=== PATIENT | male | born 1960 | race African-American/Black ===

== ENCOUNTER 2023-05-19 22:51 | Inpatient (IN) | payer OTHER ==
[2023-05-19 23:26] VITALS: BMI 21.1
[2023-05-19] MEDS ORDERED: BENZONATATE 200 MG CAPSULE PO PRN (23:45)
[2023-05-19] MEDS ORDERED: ONDANSETRON *ODT* 4 MG TABLET SL PRN (23:45)
[2023-05-19] MEDS ORDERED: IBUPROFEN 600 MG TABLET (FP) PO PRN (23:45)
[2023-05-19] MEDS ORDERED: NICOTINE POLACRILEX 4 MG GUM BUC PRN (23:45)
[2023-05-19] MEDS ORDERED: LOPERAMIDE HCL 2 MG CAPSULE PO PRN (23:45)
[2023-05-19] MEDS ORDERED: ACETAMINOPHEN 325 MG TABLET (FP) PO PRN (23:45)
[2023-05-19] MEDS ORDERED: NALOXONE HCL (KLOXXADO) 8 MG SPRAY NS PRN (23:45)
[2023-05-19] MEDS ORDERED: guaiFENesin 600 MG TABLET.ER (FP) PO PRN (23:45)
[2023-05-19] MEDS ORDERED: NALOXONE HCL 0.4 MG/ML VIAL IM PRN (23:45)
[2023-05-19] MEDS ORDERED: MAG HYDROX/AL HYDROX/SIMETH 30 ML UNIT-DOSE CUP PO PRN (23:45)
[2023-05-19] MEDS ORDERED: BENZOCAINE/MENTHOL (CHLORASEPTIC ) LOZENGE MM PRN (23:45)
[2023-05-19] MEDS ORDERED: POLYETHYLENE GLYCOL (HEALTHYLAX) 3350 17 GM PACKET PO PRN (23:45)
[2023-05-19] MEDS ORDERED: IBUPROFEN 400 MG TABLET (FP) PO PRN (23:45)
[2023-05-19] MEDS ORDERED: chlordiazePOXIDE HCL 25 MG CAPSULE PO PRN (23:45)
[2023-05-19] MEDS ORDERED: BISMUTH SUBSALICYLATE 524 MG/30 ML PO PRN (23:45)
[2023-05-19] MEDS ORDERED: MAGNESIUM HYDROX 2400MG/30ML ORAL SUSPENSION 30 ML CUP PO PRN (23:45)
[2023-05-19] MEDS ORDERED: DICYCLOMINE HCL 10 MG CAPSULE PO PRN (23:45)
[2023-05-20] MEDS: chlordiazePOXIDE HCL 25 MG CAPSULE PO SCH ×5 (03:41→22:33)
[2023-05-20 09:36] LABS: HEMATOCRIT 27.5 % (35.4-49); HEMOGLOBIN 9.1 GM/dL (11.7-16.9); MCH 34.5 pg (25.7-33.7); MEAN CELL VOLUME 104.3 fl (80-96); PLATELET COUNT 198 10^3/uL (134-434); RBC 2.63 M/mm3 (4.00-5.60); RDW 16.7 % (11.9-15.9); WHITE BLOOD COUNT 5.5 K/mm3 (4.0-10.0)
[2023-05-20 09:43] LABS: CHLORIDE 110 mmol/L (98-107); POTASSIUM 3.8 mmol/L (3.5-5.1); SODIUM 142 mmol/L (136-145)
[2023-05-20 10:04] LABS: ALBUMIN 2.5 g/dl (3.4-5.0); ANION GAP 5 mmol/L (4-13); BLOOD UREA NITROGEN 20.7 mg/dL (7-18); CALCIUM 8.2 mg/dL (8.5-10.1); CO2 26 mmol/L (21-32); GLUCOSE,RANDOM 95 mg/dL (74-106)
[2023-05-20 10:07] LABS: SGOT/AST 40 U/L (15-37); SGPT/ALT 19 U/L (13-61)
[2023-05-20 10:09] LABS: BILIRUBIN,TOTAL 0.2 mg/dL (0.2-1); TOT PROT 6.4 g/dl (6.4-8.2)
[2023-05-20 10:10] LABS: ALK PHOS 105 U/L (45-117)
[2023-05-20] MEDS: NICOTINE 14 MG/24 HOURS TOPICAL PATCH TD SCH (10:32)
[2023-05-20] MEDS: PRENATAL VITAMINS W/ FOLIC ACID TABLET (FP) PO SCH (10:32)
[2023-05-20] MEDS: MELATONIN 5 MG TABLETS PO SCH (22:32)
[2023-05-20] MEDS: THIAMINE HCL 100 MG TABLET (FP) PO SCH (22:32)
[2023-05-21] MEDS: chlordiazePOXIDE HCL 25 MG CAPSULE PO SCH ×4 (05:49→22:16)
[2023-05-21] MEDS: PRENATAL VITAMINS W/ FOLIC ACID TABLET (FP) PO SCH (10:26)
[2023-05-21] MEDS: NICOTINE 14 MG/24 HOURS TOPICAL PATCH TD SCH (10:27)
[2023-05-21] MEDS: LISINOPRIL 20 MG TABLET PO SCH (12:49)
[2023-05-21] MEDS: HYDROCHLOROTHIAZIDE 25 MG TABLET (FP) PO SCH (12:49)
[2023-05-21] MEDS ORDERED: hydrOXYzine PAMOATE 25 MG CAPSULE (FP) PO PRN (14:47)
[2023-05-21] MEDS: MELATONIN 5 MG TABLETS PO SCH (22:16)
[2023-05-21] MEDS: THIAMINE HCL 100 MG TABLET (FP) PO SCH (22:16)
[2023-05-22] MEDS ORDERED: chlordiazePOXIDE HCL 10 MG CAPSULE PO PRN
[2023-05-22] MEDS: chlordiazePOXIDE HCL 10 MG CAPSULE PO SCH ×4 (05:34→22:06)
[2023-05-22] MEDS: HYDROCHLOROTHIAZIDE 25 MG TABLET (FP) PO SCH (10:11)
[2023-05-22] MEDS: PRENATAL VITAMINS W/ FOLIC ACID TABLET (FP) PO SCH (10:11)
[2023-05-22] MEDS: LISINOPRIL 20 MG TABLET PO SCH (10:11)
[2023-05-22] MEDS: NICOTINE 14 MG/24 HOURS TOPICAL PATCH TD SCH (10:12)
[2023-05-22] MEDS: ABACAVIR/DOLUTEGRAVIR/LAMIVUDI (TRIUMEQ) TABLET PO SCH (14:11)
[2023-05-22] MEDS: SULFAMETHOXAZOLE/TRIMETHOPRIM 800MG/160MG D.S. TABLET PO SCH (14:11)
[2023-05-22] MEDS: TERAZOSIN HCL 5 MG CAPSULE PO SCH (14:11)
[2023-05-22] MEDS: THIAMINE HCL 100 MG TABLET (FP) PO SCH (22:06)
[2023-05-22] MEDS: MELATONIN 5 MG TABLETS PO SCH (22:06)
[2023-05-23] MEDS ORDERED: chlordiazePOXIDE HCL 10 MG CAPSULE PO SCH (05:00)
[2023-05-23 06:31] VITALS: RESP 16
[2023-05-23 09:11] VITALS: BP 103/60; PULSE 78; TEMP 97.6
[2023-05-23] MEDS: ABACAVIR/DOLUTEGRAVIR/LAMIVUDI (TRIUMEQ) TABLET PO SCH (09:30)
[2023-05-23] MEDS: TERAZOSIN HCL 5 MG CAPSULE PO SCH (09:30)
[2023-05-23] MEDS: LISINOPRIL 20 MG TABLET PO SCH (09:31)
[2023-05-23] MEDS: SULFAMETHOXAZOLE/TRIMETHOPRIM 800MG/160MG D.S. TABLET PO SCH (09:31)
[2023-05-23] MEDS: PRENATAL VITAMINS W/ FOLIC ACID TABLET (FP) PO SCH (09:31)
[2023-05-23] MEDS: HYDROCHLOROTHIAZIDE 25 MG TABLET (FP) PO SCH (09:31)
[2023-05-23] MEDS: NICOTINE 14 MG/24 HOURS TOPICAL PATCH TD SCH (09:31)
[2023-05-24] MEDS ORDERED: chlordiazePOXIDE HCL 10 MG CAPSULE PO ONE (05:00)
== END 2023-05-23 11:37 | disposition home or self-care (01) | DRG 897 ==
LOC: YASAS 22:51 → Y3N 05-20 03:39
PROVIDERS: ADMIT Allergy & Immunology; ATTEND Surgery
PROC: HZ2ZZZZ Detoxification Services for Substance Abuse Treatment (ICD-10-PCS; principal; 2023-05-20)
DX: F10.230 Alcohol dependence with withdrawal, uncomplicated (principal); F14.20 Cocaine dependence, uncomplicated; F17.210 Nicotine dependence, cigarettes, uncomplicated; Z21 Asymptomatic human immunodeficiency virus [HIV] infection status; I10 Essential (primary) hypertension; N40.0 Benign prostatic hyperplasia without lower urinary tract symptoms; Z99.89 Dependence on other enabling machines and devices; Z91.011 Allergy to milk products
CPT/HCPCS: 36415; 80053; 80307; 84132; 85027; 86780; 87635